=== PATIENT | female | born 1955 | race Caucasian/White ===

== ENCOUNTER 2018-11-12 12:56 | Emergency (ER) | payer OTHER ==
[~2018-11-12] VITALS: Ht 160 cm; Wt 57.6 kg
[2018-11-12] MEDS ORDERED: LAMICTAL200 MG PO (13:07)
[2018-11-12] MEDS ORDERED: VALIUM5 MG PO (13:07)
[2018-11-12] MEDS ORDERED: CYMBALTA60 MG PO (13:07)
[2018-11-12] MEDS ORDERED: ATENOLOL 50MG T50 M1 PO (13:07)
[2018-11-12] MEDS ORDERED: SYNTHROID50 MCG PO (13:07)
[2018-11-12] MEDS ORDERED: NORCO 7.5-3251 EACH PO (13:08)
[2018-11-12] MEDS ORDERED: LISINOPRIL20 MG PO (13:08)
[2018-11-12] MEDS ORDERED: MS CONTIN15 MG PO (13:08)
[2018-11-12] MEDS ORDERED: METHYLPHENIDATE10 MG PO (13:08)
[2018-11-12] MEDS ORDERED: MEDROLDOSEPACK PO (14:16)
[2018-11-12] MEDS ORDERED: ROBAXIN 750 MG750 M1 PO (14:16)
[2018-11-12 14:23] VITALS: BP 198/88
== END 2018-11-12 14:24 | disposition home or self-care (01) ==
LOC: M.ERS 12:56
DX: M54.2 Cervicalgia (principal); M19.90 Unspecified osteoarthritis, unspecified site; I10 Essential (primary) hypertension; F41.9 Anxiety disorder, unspecified; F31.9 Bipolar disorder, unspecified; Z88.0 Allergy status to penicillin

== ENCOUNTER 2019-10-08 16:38 | Emergency (ER) | payer MEDICARE ==
[~2019-10-08] VITALS: Ht 160 cm; Wt 56.7 kg
[~2019-10-08 16:38] MED LIST: ATENOLOL 50MG T50 M1 PO; CYMBALTA60 MG PO; LAMICTAL200 MG PO; LISINOPRIL20 MG PO; MEDROLDOSEPACK PO; METHYLPHENIDATE10 MG PO; MS CONTIN15 MG PO; NORCO 7.5-3251 EACH PO; ROBAXIN 750 MG750 M1 PO; SYNTHROID50 MCG PO; VALIUM5 MG PO
[2019-10-08] MEDS ORDERED: SENNA8.8 MG/5 M PO (16:55)
[2019-10-08 17:22] LABS: ABSOLUTE EOSINOPHILS 0.1 thou/uL (0.0-0.7); ABSOLUTE LYMPHOCYTES 3.4 thou/uL (0.8-5.3); ABSOLUTE MONOCYTES 0.4 thou/uL (0.0-1.2); ABSOLUTE NEUTROPHILS 3.1 thou/uL (1.6-8.1); BASOPHILS 0.6 %; HEMATOCRIT 47.7 % (37.0-47.0); MCH 30.3 pg (26.0-34.0); MCHC 33.6 g/dL (28.0-37.0); MCV 90.2 fL (80.0-100.0); MONOCYTES 5.7 %; MPV 6.3 fl. (7.2-11.1); NUCLEATED RBCS 0 /100WBC; PLATELET COUNT* 411 thou/uL (150-400); POLYS 43.7 %; RBC 5.29 mil/uL (4.20-5.00); RDW-CV 13.5 % (10.5-14.5)
[2019-10-08 17:30] LABS: CALCIUM 8.5 mg/dL (8.5-10.1); CREATININE 0.8 mg/dL (0.6-1.3); POTASSIUM 3.5 mmol/L (3.5-5.1)
[2019-10-08 17:34] LABS: TOTAL BILIRUBIN 0.5 mg/dL (<0.1-1.0); TOTAL PROTEIN 7.5 g/dL (6.4-8.2)
[2019-10-08 17:37] LABS: URINE BILIRUBIN NEGATIVE (Negative); URINE BLOOD NEGATIVE (Negative); URINE CLARITY CLEAR; URINE COLOR STRAW; URINE GLUCOSE-RANDOM NEGATIVE (Negative); URINE KETONES NEGATIVE (Negative); URINE LEUKOCYTES NEGATIVE (Negative); URINE NITRITE NEGATIVE (Negative); URINE PROTEIN NEGATIVE (Negative); URINE SPECIFIC GRAVITY <= 1.005 (1.005-1.030); URINE UROBILINOGEN 0.2 E.U./dl (0.2-1.0)
[2019-10-08] MEDS ORDERED: FLAGYL500 M1 PO (18:45)
[2019-10-08] MEDS ORDERED: CIPRO500 M1 PO (18:45)
[2019-10-08 19:06] VITALS: BP 155/86
--- NOTE | 2019-10-10 11:46 | EKG ---
[place] [address] ELECTROCARDIOGRAM REPORT Name: TIENROSYMEL Room: [facility]#: [id number] Admission: 10/08/19 Attend Phys: Discharge: 10/08/19 Date of : 51 Date of Service: 10/08/191714 Report #: [id number] THIS REPORT FOR: //name// [facility] ED Test Date: 2019-10-08 Test Time: 17:15:28 Pat Name: MEL MICHAEL Department: Room: Gender: F Resp Ther: CCD : 1955 Requested By: Mariana Collins Order Number: [id number] MD: Hal Hogan Measurements Intervals [place] Rate: 60 P: 72 MN: 145 QRS: 75 QRSD: 98 T: 54 QT: 416 QTc: 416 Interpretive Statements Sinus rhythm No previous ECG available for comparison Electronically Signed On 10-10-2019 11:45:01 CDT by Hal Hogan [email or web address] <ELECTRONICALLY SIGNED> By: Hal Hogan MD, [facility] 10/10/19 1145 14 14 Hal Hogan MD, FACC /EPI
== END 2019-10-08 19:07 | disposition home or self-care (01) ==
LOC: M.ERS 16:38
PROVIDERS: Physician Assistant
DX: K57.92 Diverticulitis of intestine, part unspecified, without perforation or abscess without bleeding (principal); R91.1 Solitary pulmonary nodule; I10 Essential (primary) hypertension; F32.9 Major depressive disorder, single episode, unspecified; F41.9 Anxiety disorder, unspecified; M19.90 Unspecified osteoarthritis, unspecified site; Z88.0 Allergy status to penicillin; Z79.899 Other long term (current) drug therapy